=== PATIENT | female | born 2000 | race Two or more races ===

== ENCOUNTER 2023-06-30 11:08 | Emergency (ER) | payer OTHER ==
[~2023-06-30] VITALS: Ht 162.6 cm; Wt 71.7 kg
[2023-06-30] MEDS ORDERED: ZOLOFT50 MG PO (11:48)
[2023-06-30] MEDS ORDERED: BREYNA 160-4.10.3 GM IH (11:49)
[2023-06-30 13:21] LABS: HEMATOCRIT 37.8 % (36.0-45.00); MEAN CELL VOLUME 88.4 fL (80.00-100.00); MEAN CORPUSCULAR HEMOGLOBIN 30.3 pg (27.00-32.0); MEAN CORPUSCULAR HGB CONC 34.3 g/dl (32.0-36.0); PLATELET COUNT 200 K/uL (150-450); RED BLOOD COUNT 4.28 M/uL (4.00-6.00); RED CELL DISTRIBUTION WIDTH 13.1 % (11.5-14.5)
== END 2023-06-30 13:52 | disposition home or self-care (01) ==
LOC: ER 11:09
PROVIDERS: General Practice
DX: B34.9 Viral infection, unspecified (principal); Z20.822 Contact with and (suspected) exposure to COVID-19; Z88.8 Allergy status to other drugs, medicaments and biological substances